=== PATIENT | female | born 1935 | race Caucasian/White ===

== ENCOUNTER 2016-09-14 11:38 | Emergency (ER) | payer MEDICARE, OTHER ==
[~2016-09-14] VITALS: Ht 157.5 cm; Wt 79.4 kg
[~2016-09-14 11:38] MED LIST: IBUP-23 PO; LEVO150T PO; PANT40TA2 PO; PROP15DR EACHEYE; ROPI1TAB2 PO; ZOLP10TA2 PO
--- NOTE | 2016-09-14 11:56 | NUR ---
dr villegas at the bedside for eval and exam.
[2016-09-14] MEDS ORDERED: MELA3TAB PO (11:59)
[2016-09-14] MEDS ORDERED: TRAZ-144 PO (11:59)
[2016-09-14] MEDS ORDERED: MECLIZINE HCL 25 MG TABLET ONE (12:12)
[2016-09-14] MEDS ORDERED: MECLIZINE HCL 25 MG TABLET PO ONE (12:15)
--- NOTE | 2016-09-14 12:16 | NUR ---
pt left ER for CT.
[2016-09-14 13:31] LABS: *BILIRUBIN,URIN NEGATIVE (NEGATIVE); *BLOOD, URINE NEGATIVE (NEGATIVE); *CLARITY,URINE CLEAR (CLEAR); *COLOR,URINE YELLOW (YELLOW); *KETONES,URINE NEGATIVE (NEGATIVE); *PROTEIN,URINE NEGATIVE (NEGATIVE); *UROBILINOGEN,URINE 0.2 E.U./dl (NORMAL); LEUKOCYTE ESTERASE ,URINE NEGATIVE (NEGATIVE); NITRITE, URINE NEGATIVE (NEGATIVE); PH,URINE 7.5 (5.0-8.0); UGLUCOSE NEGATIVE (NEGATIVE)
--- NOTE | 2016-09-14 14:00 | NUR ---
DR ESTRADA MADE PATIENT AWARE OF TEST RESULTS WILL BE DC
[2016-09-14 14:01] LABS: BACTERIA,URINE NONE SEEN /HPF (NONE SEEN); RBC,URINE 0-3 /HPF (0-3); SQUAMOUS EPITHELIAL CELL,UR FEW /HPF (NONE SEEN); WBC,URINE NONE SEEN /HPF (0-3)
--- NOTE | 2016-09-14 14:25 | NUR ---
Patient discharged to home in stable conditon. Written and verbal after care instructions given. Patient verbalizes understanding of instructions.
== END 2016-09-14 14:27 | disposition home or self-care (01) ==
LOC: ER 11:39
DX: H83.09 Labyrinthitis, unspecified ear (principal); R42 Dizziness and giddiness; E78.5 Hyperlipidemia, unspecified; R51 Headache
CPT/HCPCS: 70450; A4663; J8597